=== PATIENT | male | born 1980 | race Caucasian/White ===

== ENCOUNTER 2018-03-30 23:52 | Emergency (ER) | payer BC ==
[2018-03-31] MEDS ORDERED: Sodium Chloride 0.9% 10 ML Syringe FLUSH PRN (00:20)
[2018-03-31] MEDS ORDERED: Dicyclomine 10 MG Cap PO ONE (00:22)
--- NOTE | 2018-03-31 00:25 | EDM.PDOC ---
ED HPI GENERAL MEDICAL PROBLEM - General Chief Complaint: Abdominal Pain Stated Complaint: ABDOMINAL PAIN Time Seen by Provider: 03/30/18 23:53 Source of Information: Reports: Patient History Limitations: Reports: No Limitations - History of Present Illness INITIAL COMMENTS - FREE TEXT/NARRATIVE: 38 y/o M with abdominal pain x months, worse x a few days. No provoking factor. Has had pain for months. Describes it as lower abdomen cramping, comes and goes , currently mild. Not related to eating. Sometimes worse with movement. He's not sure if he's constipated or not, but does have hard stools. Has been eating plums and drinking prune juice for this. No vomiting. No fever. No dysuria or hematuria. No testicular pain. Pain is currently mild, declines pain medications. Lower Abdomen Pain Score (Numeric/FACES): 7 - Related Data Allergies Allergy/AdvReac Type Severity Reaction Status Date / Time omeprazole [From Prilosec] Allergy Tachycardia Verified 03/31/18 00:04 Home Meds: Home Meds Dicyclomine [Bentyl] 20 mg PO QID PRN #20 tab 03/31/18 [Rx] Polyethylene Glycol 3350 [MiraLAX] 17 gm PO BID PRN #30 packet 03/31/18 [Rx] Social & Family History - Tobacco Use Smoking Status *Q: Current Every Day Smoker Years of Tobacco use: 20 Packs/Tins Daily: 2 - Caffeine Use Caffeine Use: Reports: Soda - Recreational Drug Use Recreational Drug Use: Yes Recreational Drug Type: Reports: Marijuana/Hashish Recreational Drug Use Frequency: Weekly ED ROS GENERAL - Review of Systems Review Of Systems: See Below Constitutional: Denies: Fever HEENT: Reports: No Symptoms Respiratory: Denies: Shortness of Breath Cardiovascular: Denies: Chest Pain Endocrine: Reports: No Symptoms GI/Abdominal: Reports: Abdominal Pain : Denies: Dysuria Musculoskeletal: Reports: No Symptoms Skin: Reports: No Symptoms Neurological: Reports: No Symptoms Psychiatric: Reports: No Symptoms ED EXAM, GI/ABD - Physical Exam Exam: See Below Exam Limited By: No Limitations General Appearance: Alert, WD/WN, No Apparent Distress Eyes: Bilateral: Normal Appearance Ears: Normal External Exam Nose: Normal Inspection Throat/Mouth: Normal Inspection, Normal Oropharynx, Normal Voice, No Airway Compromise Head: Atraumatic, Normocephalic Neck: Normal Inspection, Supple Respiratory/Chest: No Respiratory Distress, Lungs Clear, Normal Breath Sounds, Chest Non-Tender Cardiovascular: Normal Peripheral Pulses, Regular Rate, Rhythm, No Murmur GI/Abdominal Exam: Soft, No Distention, Other (+LLQ TTP, no rebound/guarding ). No: Rebound (Male) Exam: No Hernia, Normal Inspection. No: Hernia, Penile Lesions, Scrotum Tenderness (L), Scrotum Tenderness (R), Testicular Tenderness (L), Testicular Tenderness (R) Back Exam: Normal Inspection. No: CVA Tenderness (L), CVA Tenderness (R) Extremities: Normal Inspection Neurological: Alert, Oriented, Normal Cognition, No Motor/Sensory Deficits Psychiatric: Normal Affect, Normal Mood Skin Exam: Warm, Dry, Intact, Normal Color, No Rash Course - Vital Signs Last Recorded V/S: Last Vital Signs Temp 36.9 C 03/31/18 00:00 Pulse 88 03/31/18 00:00 Resp 18 03/31/18 00:00 BP 140/87 03/31/18 00:00 Pulse Ox 97 03/31/18 00:00 - Orders/Labs/Meds Orders: Active Orders 24 hr Category Date Time Status Peripheral IV Care [RC] . DIRECTED Care 03/31/18 00:20 Active Peripheral IV Care [RC] . DIRECTED Care 03/31/18 00:20 Active KUB [Abdomen 1V Flat] [CR] Stat Exams 03/31/18 00:17 Taken UA W/MICROSCOPIC [URIN] Stat Lab 03/31/18 00:21 Stop Req Sodium Chloride 0.9% [Saline Flush] Med 03/31/18 00:20 Active 10 ml FLUSH ASDIRECTED PRN Peripheral IV Insertion Adult [OM.PC] Routine Oth 03/31/18 00:20 Ordered Medication Orders Sodium Chloride (Saline Flush) 10 ml FLUSH ASDIRECTED PRN PRN Reason: Keep Vein Open Labs: Laboratory Tests 03/31/18 03/31/18 Range/Units 00:35 00:35 WBC 12.01 H (4.23-9.07) K/mm3 RBC 5.52 (4.63-6.08) M/mm3 Hgb 16.5 (13.7-17.5) gm/L Hct 47.9 (40.1-51.0) % MCV 86.8 (79.0-92.2) fl MCH 29.9 (25.7-32.2) pg MCHC 34.4 (32.2-35.5) g/dl RDW Std Deviation 43.0 (35.1-43.9) fL Plt Count 261 (163-337) K/mm3 MPV 9.6 (9.4-12.3) fl Neut % (Auto) 58.7 (34.0-67.9) % Lymph % (Auto) 26.9 (21.8-53.1) % [place] % (Auto) 12.3 H (5.3-12.2) % Eos % (Auto) 1.7 (0.8-7.0) Baso % (Auto) 0.2 (0.1-1.2) % Neut # (Auto) 7.04 H (1.78-5.38) K/mm3 Lymph # (Auto) 3.23 (1.32-3.57) K/mm3 [place] # (Auto) 1.48 H (0.30-0.82) K/mm3 Eos # (Auto) 0.21 (0.04-0.54) K/mm3 Baso # (Auto) 0.02 (0.01-0.08) K/mm3 Manual Slide Review Normal smear Sodium 138 (136-145) mEq/L Potassium 3.7 (3.5-5.1) mEq/L Chloride 101 (98-107) mEq/L Carbon Dioxide 31 (21-32) mEq/L Anion Gap 9.7 (5-15) BUN 10 (7-18) mg/dL Creatinine 1.0 (0.7-1.3) mg/dL Est Cr Clr Drug Dosing 104.43 mL/min Estimated GFR (MDRD) > 60 (>60) mL/min BUN/Creatinine Ratio 10.0 L (14-18) Glucose 106 (74-106) mg/dL Calcium 9.1 (8.5-10.1) mg/dL Total Bilirubin 0.4 (0.2-1.0) mg/dL AST 16 (15-37) U/L ALT 31 (16-63) U/L Alkaline Phosphatase 100 (46-116) U/L Total Protein 7.3 (6.4-8.2) g/dl Albumin 4.0 (3.4-5.0) g/dl Globulin 3.3 gm/dL Albumin/Globulin Ratio 1.2 (1-2) Lipase 267 (73-393) U/L Meds: Medications Generic Name Dose Route Start Last Admin Trade Name Frejeremy PRN Reason Stop Dose Admin Sodium Chloride 10 ml 03/31/18 00:20 Saline Flush FLUSH ASDIRECTED PRN Keep Vein Open Discontinued Medications Generic Name Dose Route Start Last Admin Trade Name Freq PRN Reason Stop Dose Admin Dicyclomine HCl 40 mg 03/31/18 00:22 03/31/18 00:58 Bentyl PO 03/31/18 00:23 40 mg ONETIME ONE Administration - Re-Assessments/Exams Free Text/Narrative Re-Assessment/Exam: 03/31/18 01:14 Declined pain medication. Exam benign. WBC 12, no left shift. KUB shows moderate L colonic stool burden. His exam is not consistent with acute abdomen. Suspect pain due to constipation and cramping after eating plums/drinking prune juice. Will rx miralax and dicyclomine, encouraged him to f/u with PCP regarding his longstanding abdominal pain, discussed ED return precautions. Departure - Departure Time of Disposition: 01:17 Disposition: Home, Self-Care 01 Clinical Impression: Abdominal pain Qualifiers: Abdominal location: generalized Qualified Code(s): R10.84 - Generalized abdominal pain - Discharge Information Prescriptions: Dicyclomine [Bentyl] 20 mg PO QID PRN #20 tab PRN Reason: Abdominal Pain Polyethylene Glycol 3350 [MiraLAX] 17 gm PO BID PRN #30 packet PRN Reason: Constipation Referrals: PCP,None [Primary Care Provider] - Forms: ED Department Discharge Additional Instructions: 1. Follow up with the primary care provider of your choice as soon as possible for further care. Call [phone] if you'd like to schedule with a provider here. 2. Eat plenty of fruits and vegetables. Take over the counter stool softeners or laxatives as needed for constipation. 3. Return to the ED as needed for severe pain, fever, vomiting without keeping liquids down, or other concerning symptoms. 4. Take bentyl (dicyclomine) as needed for abdominal cramping. - My Orders Last 24 Hours: My Active Orders 03/31/18 00:17 KUB [Abdomen 1V Flat] [CR] Stat 03/31/18 00:20 Peripheral IV Care [RC] . DIRECTED Peripheral IV Care [RC] . DIRECTED Sodium Chloride 0.9% [Saline Flush] 10 ml FLUSH ASDIRECTED PRN Peripheral IV Insertion Adult [OM.PC] Routine 03/31/18 00:21 UA W/MICROSCOPIC [URIN] Stat - Assessment/Plan Last 24 Hours: My Active Orders 03/31/18 00:17 KUB [Abdomen 1V Flat] [CR] Stat 03/31/18 00:20 Peripheral IV Care [RC] . DIRECTED Peripheral IV Care [RC] . DIRECTED Sodium Chloride 0.9% [Saline Flush] 10 ml FLUSH ASDIRECTED PRN Peripheral IV Insertion Adult [OM.PC] Routine 03/31/18 00:21 UA W/MICROSCOPIC [URIN] Stat
--- NOTE | 2018-04-01 15:05 | CR ---
Abdomen: Supine view of the abdomen was obtained. Comparison: No previous abdominal imaging. Bowel gas pattern appears normal. No abnormal calcifications or soft tissue abnormality is seen. Bony structures are unremarkable. Impression: 1. Unremarkable supine abdominal x-ray. Diagnostic code #1
== END 2018-03-31 01:20 | disposition home or self-care (01) ==
LOC: JD.ED 23:52
DX: R10.84 Generalized abdominal pain (principal); F17.210 Nicotine dependence, cigarettes, uncomplicated
CPT/HCPCS: 36415; 74018; 74018-26; 80053; 83690; 85025; 99284; A9270-GY